=== PATIENT | female | born 1965 | race Caucasian/White ===

== ENCOUNTER → 2016-06-03 09:38 | Outpatient (CLI) | payer BC ==
--- NOTE | 2016-06-11 08:21 | EEG ---
PATIENT:JOELLE NELSON DATE OF SERVICE: 06/03/16 MEDICAL RECORD: [id number] DATE OF : 67 LOCATION: [facility] ADMISSION DATE: 06/03/16 REFERRING PHYSICIAN: INTERPRETING PHYSICIAN: RAFAEL EUGENE MD DATE OF SERVICE: 06/03/2016 Electroencephalographic Report Referred by myself as an outpatient. ELECTROENCEPHALOGRAM NUMBER: [id number] DATE OF EXAMINATION: 06/03/2016 at 10:30 a.m. TECHNICAL DATA: This electroencephalographic recording consists of approximately 20 minutes of data collection utilizing the international 10/20 system of electrode placement and both referential and non-referential montages. Sixteen channels of electrocerebral recording are accompanied by a 17th channel dedicated to the electrocardiographic rhythm and 2 channels of electromyographic recording. Recording is performed entirely in the waking state utilizing activation by hyperventilation and photic stimulation. ELECTROENCEPHALOGRAPHIC DATA: The entirety of the recorded electrocerebral activity is performed in the waking state. Electromyographic artifact is prominent and rapid eye movements are seen. The posterior dominant background consists of a well-developed, symmetric, rhythmic, waxing and waning alpha activity of 10-11 Hz, which is suppressed by eye opening. No abnormal or focal slowing is identified. No epileptiform discharges are seen. Hyperventilation and photic stimulation induced no abnormal change in the recorded electrocerebral activity. INTERPRETATION: Normal (awake). This is a normal waking electroencephalographic recording. TRANSINT:[id number] Voice Confirmation ID: [id number] DOCUMENT ID: [id number] RAFAEL EUGENE MD at 0821 CC: [id number] DICTATION DATE: 06/04/16 0630 SONOGRAPHER: 06/05/16 0113 DEP CLI 06/03/16 [facility] [address] [id number]
== END | disposition home or self-care (01) ==
LOC: D.CN 09:38
DX: G43.711 Chronic migraine without aura, intractable, with status migrainosus (principal); G43.009 Migraine without aura, not intractable, without status migrainosus